=== PATIENT | female | born 1945 | race Caucasian/White ===

== ENCOUNTER → 2016-09-10 | Outpatient (REF) | payer MEDICARE ==
[~2016-09-10] MED LIST: /ADVA50050 INH; /LANS30GR PO; /MIRT15TA PO; /WARF5TA OR; ALLO300T PO; ALPR0.25 PO; ASPI81TA3 PO; ATEN100T OR; DIGO0.257 OR; FURO40TA2 PO; HYDROCODONE/TYLENOL PO; LISI30TA3 PO; MILKSUS OR; NITR0.4S SL; POTA20TA2 OR; SERT100T PO; TAMB100T OR; TYL RE; VERA80TA PO; VITA-113 IM; VITA100T OR; VITAMIN D50000 UNT PO; XANA0.25 OR
[2016-09-10 15:36] LABS: MEAN CORPUSCULAR HEMOGLOBIN 28.7 pg (27.0-33.0); MEAN CORPUSCULAR HGB CONC 31.7 g/dl (32.0-36.5); MEAN CORPUSCULAR VOLUME 90.5 fl (80.0-96.0); RED CELL DISTRIBUTION WIDTH 14.9 % (11.5-14.5); WHITE BLOOD COUNT 5.6 K/mm3 (4.0-10.0)
[2016-09-10 15:49] LABS: ALBUMIN 3.7 GM/DL (3.2-5.2); ALBUMIN/GLOBULIN RATIO 1.12 (1.00-1.93); BILIRUBIN,TOTAL 0.6 MG/DL (0.2-1.0); CREATININE FOR GFR 1.32 MG/DL (0.55-1.02); GLOMERULAR FILTRATION RATE 42.2 (>39)
== END ==
LOC: M SFHCPLAZ 12:57
PROVIDERS: ATTEND Internal Medicine
DX: E11.9 Type 2 diabetes mellitus without complications (principal); I27.0 Primary pulmonary hypertension; I10 Essential (primary) hypertension

== ENCOUNTER → 2017-03-20 | Outpatient (REF) | payer MEDICARE ==
[~2017-03-20] MED LIST changes: +LEVO100T5 PO; +PERC5TAB12 PO; +XARE20TA PO
[2017-03-20 13:14] LABS: MEAN CORPUSCULAR HGB CONC 33.6 g/dl (32.0-36.5); MEAN CORPUSCULAR VOLUME 98.2 fl (80.0-96.0); RED CELL DISTRIBUTION WIDTH 16.7 % (11.5-14.5); WHITE BLOOD COUNT 5.8 K/mm3 (4.0-10.0)
[2017-03-20 13:44] LABS: ALBUMIN 3.6 GM/DL (3.2-5.2); ALKALINE PHOSPHATASE 88 U/L (45-117); ALT/SGPT 26 U/L (12-78); ANION GAP 11 MEQ/L (8-16); AST/SGOT 18 U/L (15-37); BILIRUBIN,TOTAL 0.5 MG/DL (0.2-1.0); BLOOD UREA NITROGEN 25 MG/DL (7-18); CALCIUM LEVEL 9.4 MG/DL (8.8-10.2); CARBON DIOXIDE LEVEL 27 MEQ/L (21-32); CHLORIDE LEVEL 105 MEQ/L (98-107); CREATININE FOR GFR 0.95 MG/DL (0.55-1.02); GLOMERULAR FILTRATION RATE > 60.0 (>39); GLUCOSE, FASTING 159 MG/DL (83-110); MAGNESIUM LEVEL 2.1 MG/DL (1.8-2.4); POTASSIUM SERUM 4.1 MEQ/L (3.5-5.1); SODIUM LEVEL 143 MEQ/L (136-145); TOTAL PROTEIN 6.6 GM/DL (6.4-8.2)
== END ==
LOC: M SFHCPLAZ 09:50
PROVIDERS: ATTEND Internal Medicine
DX: D64.9 Anemia, unspecified (principal); I10 Essential (primary) hypertension; E11.9 Type 2 diabetes mellitus without complications; E03.9 Hypothyroidism, unspecified

== ENCOUNTER 2017-05-11 19:43 | Emergency (ER) | payer MEDICARE, OTHER ==
[~2017-05-11] VITALS: Ht 170.2 cm; Wt 100.3 kg
[~2017-05-11 19:43] MED LIST changes: -LEVO100T5 PO; -PERC5TAB12 PO; -XARE20TA PO
[2017-05-11] MEDS ORDERED: LEVO100T5 PO (20:06)
[2017-05-11] MEDS ORDERED: XARE20TA PO (20:06)
[2017-05-11] MEDS ORDERED: NORCO, ANEXSIA 5/325MG TABLET (HYDROcodone/ACETAMINOPHEN) PO ONE ×2 (20:15→20:30)
[2017-05-11] MEDS ORDERED: PERCOCET 5MG/325MG TAB PO ONE ×2 (21:45→23:15)
[2017-05-11] MEDS ORDERED: PERC5TAB12 PO (22:47)
[2017-05-11 23:10] VITALS: BP 191/107
--- NOTE | 2017-05-13 07:11 | REP ---
RIGHT SHOULDER, THREE VIEWS: Three views of the right shoulder are performed. There appears to be a somewhat comminuted fracture, not significantly displaced, of the right humeral head and neck. No dislocation is seen. There are moderate degenerative changes at the acromioclavicular joint. Signed by Moo Navarro MD 05/13/2017 05:26 P
== END 2017-05-11 23:12 | disposition home or self-care (01) ==
LOC: M ED 19:43
DX: S42.294A Other nondisplaced fracture of upper end of right humerus, initial encounter for closed fracture (principal); W01.198A Fall on same level from slipping, tripping and stumbling with subsequent striking against other object, initial encounter; Y92.511 Restaurant or cafe as the place of occurrence of the external cause; Y93.01 Activity, walking, marching and hiking; Y99.9 Unspecified external cause status

== ENCOUNTER → 2017-08-16 | Outpatient (REF) | payer OTHER ==
[2017-08-16 13:10] LABS: MEAN CORPUSCULAR HEMOGLOBIN 31.8 pg (27.0-33.0); MEAN CORPUSCULAR HGB CONC 32.7 g/dl (32.0-36.5); MEAN CORPUSCULAR VOLUME 97.3 fl (80.0-96.0); PLATELET COUNT, AUTOMATED 217 10^3/uL (150-450); RED CELL DISTRIBUTION WIDTH 13.4 % (11.5-14.5); WHITE BLOOD COUNT 6.9 10^3/uL (4.0-10.0)
[2017-08-16 13:27] LABS: ANION GAP 8 MEQ/L (8-16); BLOOD UREA NITROGEN 25 MG/DL (7-18); CALCIUM LEVEL 8.9 MG/DL (8.8-10.2); CARBON DIOXIDE LEVEL 28 MEQ/L (21-32); CHLORIDE LEVEL 106 MEQ/L (98-107); CREATININE FOR GFR 1.01 MG/DL (0.55-1.02); GLOMERULAR FILTRATION RATE 57.4 (>39); GLUCOSE, FASTING 145 MG/DL (83-110); POTASSIUM SERUM 4.4 MEQ/L (3.5-5.1); SODIUM LEVEL 142 MEQ/L (136-145)
== END ==
LOC: M LABDRAWP 12:30
DX: I47.2 Ventricular tachycardia (principal); I48.2 Chronic atrial fibrillation
CPT/HCPCS: 80048

== ENCOUNTER → 2017-08-30 | Outpatient (REF) | payer OTHER ==
[2017-08-30 19:53] LABS: HEMATOCRIT 32.9 % (36.0-47.0); HEMOGLOBIN 10.6 g/dl (12.0-16.0); MEAN CORPUSCULAR HGB CONC 32.2 g/dl (32.0-36.5); MEAN CORPUSCULAR VOLUME 99.4 fl (80.0-96.0); PLATELET COUNT, AUTOMATED 186 10^3/uL (150-450); RED BLOOD COUNT 3.31 10^6/uL (4.00-5.40); RED CELL DISTRIBUTION WIDTH 13.4 % (11.5-14.5); WHITE BLOOD COUNT 6.9 10^3/uL (4.0-10.0)
[2017-08-30 20:04] LABS: INR 1.94; PROTHROMBIN TIME 22.8 SECONDS (12.4-14.5)
== END ==
LOC: M LABDRWAD 15:58
DX: Z51.81 Encounter for therapeutic drug level monitoring (principal); Z79.01 Long term (current) use of anticoagulants; Z79.899 Other long term (current) drug therapy; I48.0 Paroxysmal atrial fibrillation
CPT/HCPCS: 85610

== ENCOUNTER → 2017-09-10 | Outpatient (REF) | payer OTHER ==
[2017-09-10 12:21] LABS: PROTHROMBIN TIME 61.3 SECONDS (12.4-14.5)
[2017-09-10 13:00] LABS: INR 6.55
== END ==
LOC: M LABDRAWP 11:51
DX: I48.2 Chronic atrial fibrillation (principal)
CPT/HCPCS: 85610

== ENCOUNTER → 2017-09-13 | Outpatient (REF) | payer OTHER ==
[2017-09-13 12:35] LABS: INR 2.97; PROTHROMBIN TIME 32.2 SECONDS (12.4-14.5)
== END ==
LOC: M LABDRAWP 11:43
DX: I48.2 Chronic atrial fibrillation (principal)
CPT/HCPCS: 85610

== ENCOUNTER → 2017-10-09 | Outpatient (REF) | payer OTHER ==
[2017-10-09 11:52] LABS: HEMATOCRIT 34.9 % (36.0-47.0); HEMOGLOBIN 11.4 g/dl (12.0-16.0); MEAN CORPUSCULAR HEMOGLOBIN 30.8 pg (27.0-33.0); MEAN CORPUSCULAR HGB CONC 32.7 g/dl (32.0-36.5); MEAN CORPUSCULAR VOLUME 94.3 fl (80.0-96.0); PLATELET COUNT, AUTOMATED 222 10^3/uL (150-450); RED CELL DISTRIBUTION WIDTH 13.7 % (11.5-14.5); WHITE BLOOD COUNT 6.8 10^3/uL (4.0-10.0)
[2017-10-09 12:11] LABS: ESTIMATED AVERAGE GLUCOSE 140 MG/DL (60-110); HEMOGLOBIN A1c 6.5 %
[2017-10-09 12:27] LABS: TOTAL 25(OH) VITAMIN D 23.5 NG/ML (30.0-100.0); VITAMIN B12 LEVEL 349 PG/ML (247-911)
[2017-10-09 13:31] LABS: ALBUMIN 3.6 GM/DL (3.2-5.2); ALBUMIN/GLOBULIN RATIO 1.16 (1.00-1.93); ALKALINE PHOSPHATASE 102 U/L (45-117); ALT/SGPT 19 U/L (12-78); ANION GAP 9 MEQ/L (8-16); AST/SGOT 17 U/L (7-37); BILIRUBIN,TOTAL 0.5 MG/DL (0.2-1.0); BLOOD UREA NITROGEN 22 MG/DL (7-18); CALCIUM LEVEL 9.1 MG/DL (8.8-10.2); CARBON DIOXIDE LEVEL 27 MEQ/L (21-32); CHLORIDE LEVEL 104 MEQ/L (98-107); CREATININE FOR GFR 0.97 MG/DL (0.55-1.30); GLOMERULAR FILTRATION RATE > 60.0 (>39); GLUCOSE, FASTING 137 MG/DL (70-100); POTASSIUM SERUM 4.1 MEQ/L (3.5-5.1); SODIUM LEVEL 140 MEQ/L (136-145); TOTAL PROTEIN 6.7 GM/DL (6.4-8.2)
== END ==
LOC: M SFHCPLAZ 10:18
DX: D64.9 Anemia, unspecified (principal); I10 Essential (primary) hypertension; E11.9 Type 2 diabetes mellitus without complications; E55.9 Vitamin D deficiency, unspecified; E53.8 Deficiency of other specified B group vitamins
CPT/HCPCS: 82607

== ENCOUNTER 2017-11-04 22:07 | Emergency (ER) | payer OTHER ==
[2017-11-05 02:03] LABS: BASO % 0.5 % (0.0-1.0); EOS # 0.2 10^3/uL (0.0-0.50); HEMATOCRIT 34.7 % (36.0-47.0); HEMOGLOBIN 11.1 g/dl (12.0-16.0); IMMATURE GRANULOCYTE % 0.3 % (0-3.0); LYMPH # 1.8 10^3/uL (1.5-4.5); LYMPH % 23.6 % (24.0-44.0); MEAN CORPUSCULAR HEMOGLOBIN 29.8 pg (27.0-33.0); MONO # 0.6 10^3/uL (0.0-0.8); NEUTROPHILS # 4.9 10^3/uL (1.8-7.7); NEUTROPHILS % 65.6 % (36.0-66.0); PLATELET COUNT, AUTOMATED 227 10^3/uL (150-450); RED BLOOD COUNT 3.73 10^6/uL (4.00-5.40); RED CELL DISTRIBUTION WIDTH 14.2 % (11.5-14.5); WHITE BLOOD COUNT 7.5 10^3/uL (4.0-10.0)
[2017-11-05 02:12] LABS: INR 1.08; PROTHROMBIN TIME 14.2 SECONDS (12.4-14.5)
== END 2017-11-05 03:13 | disposition home or self-care (01) ==
LOC: M ED 22:07
DX: R04.0 Epistaxis (principal); I10 Essential (primary) hypertension; Z79.890 Hormone replacement therapy; Z79.01 Long term (current) use of anticoagulants; Z79.51 Long term (current) use of inhaled steroids; Z79.899 Other long term (current) drug therapy; Z98.0 Intestinal bypass and anastomosis status; Z98.890 Other specified postprocedural states; Z91.041 Radiographic dye allergy status; Z88.5 Allergy status to narcotic agent; Z88.8 Allergy status to other drugs, medicaments and biological substances; Z88.1 Allergy status to other antibiotic agents
CPT/HCPCS: 85610

== ENCOUNTER → 2018-05-01 | Outpatient (CLI) | payer OTHER | LOC: M WHC 07:45 | DX: Z12.31 Encounter for screening mammogram for malignant neoplasm of breast (principal); I10 Essential (primary) hypertension; Z87.81 Personal history of (healed) traumatic fracture; Z78.0 Asymptomatic menopausal state | CPT/HCPCS: 77067 ==

== ENCOUNTER → 2018-10-14 | Outpatient (REF) | payer OTHER ==
[~2018-10-14] MED LIST changes: +LEVO100T5 PO; +PERC5TAB12 PO; +PLAV1TAB2 PO; +XARE20TA PO
[2018-10-14 12:38] LABS: HEMATOCRIT 40.2 % (36.0-47.0); HEMOGLOBIN 12.8 g/dl (12.0-15.5); MEAN CORPUSCULAR HEMOGLOBIN 30.5 pg (27.0-33.0); MEAN CORPUSCULAR HGB CONC 31.8 g/dl (32.0-36.5); MEAN CORPUSCULAR VOLUME 95.9 fl (80.0-96.0); PLATELET COUNT, AUTOMATED 201 10^3/uL (150-450); RED BLOOD COUNT 4.19 10^6/uL (4.00-5.40); WHITE BLOOD COUNT 6.7 10^3/uL (4.0-10.0)
[2018-10-14 14:11] LABS: ALBUMIN 3.7 GM/DL (3.2-5.2); BILIRUBIN,TOTAL 0.4 MG/DL (0.2-1.0); CALCIUM LEVEL 9.1 MG/DL (8.8-10.2); CHOLESTEROL RISK RATIO 2.702 (<5); CREATININE FOR GFR 1.2 MG/DL (0.55-1.30); FOLATE 9.6 NG/ML; GLOMERULAR FILTRATION RATE 46.9 (>39); MAGNESIUM LEVEL 2.1 MG/DL (1.8-2.4); POTASSIUM SERUM 4.1 MEQ/L (3.5-5.1); THYROID STIMULATING HORMONE 0.697 uIU/ML (0.358-3.740); TOTAL PROTEIN 6.8 GM/DL (6.4-8.2)
[2018-10-14 15:40] LABS: HEMOGLOBIN A1c 7.7 %
== END ==
LOC: M SFHCPLAZ 09:02
PROVIDERS: ATTEND Internal Medicine
DX: D64.9 Anemia, unspecified (principal); I12.9 Hypertensive chronic kidney disease with stage 1 through stage 4 chronic kidney disease, or unspecified chronic kidney disease; E11.9 Type 2 diabetes mellitus without complications; E03.9 Hypothyroidism, unspecified; E53.8 Deficiency of other specified B group vitamins